=== PATIENT | male | born 1980 | race African-American/Black ===

== ENCOUNTER 2020-05-20 19:57 | Inpatient (IN) ==
[2020-05-20] MEDS ORDERED: SODIUM CHLORIDE 0.9% 1,000 ML IV STA (22:25)
[2020-05-20] MEDS ORDERED: METOCLOPRAMIDE 10 MG/2 ML VIAL IV STA (22:26)
[2020-05-20 23:05] LABS: Basophils % 0.5 % (0.0-0.8); Eosinophils % 0.1 % (0.00-10.9); Hematocrit 30.5 VOL% (42.0-52.0); Hemoglobin 10.8 GM/DL (14.0-18.0); Immature Granulocytes % 1.6 %; Immature Granulocytes Absolute 0.12 #; Lymphocytes # 2.4 10*3/uL (1.4-4.0); Lymphocytes % 31.5 % (21.2-54.2); Mean Corpuscular HGB Conc 35.4 GM/DL (32-36); Mean Corpuscular Volume 95.3 FL (87-102); Mean Platelet Volume 8.9 FL (9.6-12.0); Monocytes % 9.8 % (1.7-12.7); NRBC # 0.02 10*3/uL; Neutrophils % 56.5 % (38.7-73.9); Platelet Count 304 T/CUMM (130-400); Red Cell Distribution Width 15.7 % (9.3-17.3); White Blood Count 7.5 T/CUMM (4-12)
[2020-05-20 23:45] LABS: Albumin 2.5 G/DL (3.4-5.0); Bilirubin,Total 2.9 MG/DL (0.2-1.0); Calcium 8.3 MG/DL (8.5-10.1); Osmolality,Calculated 256.1 MOS/KG (273-304)
[2020-05-21] MEDS ORDERED: ONDANSETRON 4 MG/2 ML VIAL IV PRN (01:07)
[2020-05-21] MEDS ORDERED: MORPHINE 4 MG/1 ML VIAL IV PRN (01:16)
[2020-05-21 02:45] LABS: Bilirubin,Urine Negative (Negative); Blood, Urine Negative (Negative); Glucose,Urine (UA) Negative (Negative); Ketones,Urine Negative (Negative); Mucus,Urine Occasional /LPF (Occasional); Nitrite,Urine Negative (Negative); Protein,Urine Negative; RBC,Urine 4 /HPF (0-4); Urine Appearance CLEAR (Clear); Urine Color Yellow (Yellow); Urine Specific Gravity 1.008 (1.001-1.035); WBC,Urine <1 /HPF (0-6)
[2020-05-21] MEDS: LACTATED RINGERS 1,000 ML IV SCH ×3 (04:10→22:08)
[2020-05-21 05:40] LABS: Basophils % 0.5 % (0.0-0.8); Eosinophils % 0.2 % (0.00-10.9); Hematocrit 26.6 VOL% (42.0-52.0); Hemoglobin 9.6 GM/DL (14.0-18.0); Immature Granulocytes % 0.9 %; Immature Granulocytes Absolute 0.05 #; Lymphocytes # 1.9 10*3/uL (1.4-4.0); Lymphocytes % 35.2 % (21.2-54.2); Mean Corpuscular HGB Conc 36.1 GM/DL (32-36); Mean Corpuscular Volume 93.7 FL (87-102); Mean Platelet Volume 9.1 FL (9.6-12.0); Monocytes % 11.9 % (1.7-12.7); Neutrophils % 51.3 % (38.7-73.9); Platelet Count 256 T/CUMM (130-400); Red Blood Count 2.84 MC/CUMM (3.8-5.5); Red Cell Distribution Width 15.9 % (9.3-17.3); White Blood Count 5.5 T/CUMM (4-12)
[2020-05-21 06:02] LABS: Calcium 7.9 MG/DL (8.5-10.1); Osmolality,Calculated 260.8 MOS/KG (273-304)
[2020-05-21 06:54] LABS: Hepatitis B Core IgM Quant 0.06 Index; Hepatitis B Surface Ag Result Negative (Negative); Hepatitis C Virus Ab Quant 0.03 Index; Hepatitis C Virus Ab Result Negative (Negative)
[2020-05-21] MEDS ORDERED: ENOXAPARIN 40 MG/0.4 ML SYRINGE SUBCUT SCH (09:00)
[2020-05-21] MEDS ORDERED: INFLUENZA VIRUS VACCINE 0.5 ML SYRINGE IM ONE (09:00)
[2020-05-21 09:11] LABS: Albumin 2.1 G/DL (3.4-5.0); Bilirubin,Direct 1.68 MG/DL (0.0-0.20); Bilirubin,Indirect 0.8 MG/DL (0.0-1.0); Bilirubin,Total 2.5 MG/DL (0.2-1.0)
[2020-05-21] MEDS: PANTOPRAZOLE 40 MG VIAL IV SCH (09:36)
[2020-05-21] MEDS ORDERED: LORazepam 2 MG/1 ML VIAL IV PRN (11:30)
[2020-05-21 12:08] LABS: % Iron Saturation 111.8 % (18-50)
[2020-05-21 12:48] LABS: Folate 6.3 NG/ML (5.4-24.0)
[2020-05-21] MEDS: MULTIVITAMIN (CENTRUM) TABLET PO SCH (12:49)
[2020-05-21] MEDS: THIAMINE 100 MG TABLET PO SCH (12:49)
[2020-05-21] MEDS: FOLIC ACID 1 MG TABLET PO SCH (12:50)
[2020-05-22 05:49] LABS: Basophils % 0.5 % (0.0-0.8); Eosinophils % 0.2 % (0.00-10.9); Hematocrit 27.9 VOL% (42.0-52.0); Hemoglobin 9.5 GM/DL (14.0-18.0); Immature Granulocytes % 0.9 %; Immature Granulocytes Absolute 0.05 #; Lymphocytes # 1.7 10*3/uL (1.4-4.0); Lymphocytes % 28.7 % (21.2-54.2); Mean Corpuscular HGB Conc 34.1 GM/DL (32-36); Mean Corpuscular Volume 97.2 FL (87-102); Mean Platelet Volume 9.2 FL (9.6-12.0); Neutrophils % 60.7 % (38.7-73.9); Platelet Count 279 T/CUMM (130-400); Red Blood Count 2.87 MC/CUMM (3.8-5.5); Red Cell Distribution Width 15.9 % (9.3-17.3); White Blood Count 5.8 T/CUMM (4-12)
[2020-05-22 06:07] LABS: Albumin 2.1 G/DL (3.4-5.0); Bilirubin,Total 3.9 MG/DL (0.2-1.0); Calcium 8.5 MG/DL (8.5-10.1); Osmolality,Calculated 258.7 MOS/KG (273-304); Total Protein 6.1 G/DL (6.4-8.3)
[2020-05-22] MEDS ORDERED: LACTATED RINGERS 1,000 ML IV SCH (08:00)
[2020-05-22] MEDS: MULTIVITAMIN (CENTRUM) TABLET PO SCH (08:24)
[2020-05-22] MEDS: FOLIC ACID 1 MG TABLET PO SCH (08:24)
[2020-05-22] MEDS: THIAMINE 100 MG TABLET PO SCH (08:24)
[2020-05-22] MEDS: PANTOPRAZOLE 40 MG VIAL IV SCH (08:25)
[2020-05-22] MEDS ORDERED: propofoL 200 MG/20 ML VIAL IV ONE (09:00)
[2020-05-22] MEDS ORDERED: LIDOCAINE 2% 5 ML VIAL ONE (09:00)
[2020-05-22] MEDS: LACTATED RINGERS 1,000 ML IV SCH ×3 (12:24→21:41)
[2020-05-22] MEDS: oxyCODONE IR 5 MG TABLET PO PRN (21:40)
[2020-05-23 03:28] LABS: Basophils % 0.3 % (0.0-0.8); Eosinophils % 0.4 % (0.00-10.9); Hematocrit 24.1 VOL% (42.0-52.0); Hemoglobin 8.3 GM/DL (14.0-18.0); Immature Granulocytes % 1.3 %; Immature Granulocytes Absolute 0.09 #; Lymphocytes # 1.6 10*3/uL (1.4-4.0); Lymphocytes % 23.1 % (21.2-54.2); Mean Corpuscular HGB Conc 34.4 GM/DL (32-36); Mean Corpuscular Volume 98.4 FL (87-102); Mean Platelet Volume 9.2 FL (9.6-12.0); Monocytes % 8.3 % (1.7-12.7); Neutrophils % 66.6 % (38.7-73.9); Platelet Count 252 T/CUMM (130-400); Red Blood Count 2.45 MC/CUMM (3.8-5.5); Red Cell Distribution Width 16.5 % (9.3-17.3)
[2020-05-23 03:52] LABS: Bilirubin,Total 1.9 MG/DL (0.2-1.0); Calcium 7.8 MG/DL (8.5-10.1); Osmolality,Calculated 259.8 MOS/KG (273-304); Total Protein 5.7 G/DL (6.4-8.3)
[2020-05-23 05:04] LABS: Hypochromasia Slight; Platelet Estimate Normal
[2020-05-23] MEDS: LACTATED RINGERS 1,000 ML IV SCH ×2 (06:00→12:08)
[2020-05-23] MEDS: MULTIVITAMIN (CENTRUM) TABLET PO SCH (09:36)
[2020-05-23] MEDS: PANTOPRAZOLE 40 MG VIAL IV SCH (09:36)
[2020-05-23] MEDS: FOLIC ACID 1 MG TABLET PO SCH (09:36)
[2020-05-23] MEDS: THIAMINE 100 MG TABLET PO SCH (09:36)
[2020-05-23] MEDS ORDERED: POTASSIUM CHLORIDE 20 MEQ TABLET PO ONE (12:36)
[2020-05-24] MEDS: oxyCODONE IR 5 MG TABLET PO PRN (05:44)
[2020-05-24 05:50] LABS: Basophils % 0.2 % (0.0-0.8); Eosinophils % 0.4 % (0.00-10.9); Hematocrit 23.2 VOL% (42.0-52.0); Immature Granulocytes % 3.1 %; Immature Granulocytes Absolute 0.25 #; Lymphocytes # 1.8 10*3/uL (1.4-4.0); Lymphocytes % 22.4 % (21.2-54.2); Mean Corpuscular HGB Conc 34.5 GM/DL (32-36); Mean Corpuscular Volume 99.6 FL (87-102); Mean Platelet Volume 9.6 FL (9.6-12.0); Monocytes % 8.2 % (1.7-12.7); NRBC # 0.02 10*3/uL; Neutrophils % 65.7 % (38.7-73.9); Platelet Count 230 T/CUMM (130-400); Red Blood Count 2.33 MC/CUMM (3.8-5.5); Red Cell Distribution Width 16.9 % (9.3-17.3); White Blood Count 8.1 T/CUMM (4-12)
[2020-05-24 06:01] LABS: Albumin 2.2 G/DL (3.4-5.0); Bilirubin,Total 2.2 MG/DL (0.2-1.0); Calcium 8.4 MG/DL (8.5-10.1); Osmolality,Calculated 266.2 MOS/KG (273-304); Total Protein 6.1 G/DL (6.4-8.3)
[2020-05-24] MEDS: MULTIVITAMIN (CENTRUM) TABLET PO SCH (08:15)
[2020-05-24] MEDS: FOLIC ACID 1 MG TABLET PO SCH (08:15)
[2020-05-24] MEDS: THIAMINE 100 MG TABLET PO SCH (08:15)
[2020-05-24] MEDS: PANTOPRAZOLE 40 MG VIAL IV SCH (08:15)
[2020-05-24] MEDS ORDERED: MORPHINE 4 MG/1 ML VIAL IV PRN (08:19)
[2020-05-24] MEDS ORDERED: DOCUSATE SODIUM 100 MG CAPSULE PO SCH (09:00)
[2020-05-24] MEDS ORDERED: POLYETHYLENE GLYCOL POWDER 17 GM PACK PO SCH (09:00)
[2020-05-24 11:10] VITALS: BP 131/85
== END 2020-05-24 13:45 | disposition home or self-care (01) | DRG 433 ==
LOC: N.ED 19:57 → N.EDINP 05-21 01:07 → N.3E 05-21 02:27
PROVIDERS: ADMIT Internal Medicine; ATTEND Internal Medicine